=== PATIENT | male | born 1960 | race Caucasian/White ===

== ENCOUNTER 2022-06-30 08:51 | Day surgery (SDC) | payer OTHER ==
[2022-06-27 10:18] VITALS: BMI 33.0
[2022-06-30] MEDS ORDERED: SUGAMMADEX SODIUM 200 MG/2 ML VIAL ONE (09:38)
[2022-06-30] MEDS ORDERED: Midazolam HCl 2 mg/2 ml Vial ONE (14:03)
[2022-06-30] MEDS ORDERED: PROPOFOL 20 ML ONE (14:03)
[2022-06-30] MEDS ORDERED: Fentanyl 100 MCG/2 ML VIAL ONE (14:03)
[2022-06-30] MEDS ORDERED: Rocuronium Bromide 10 MG/ML (10ML VIAL) ONE (14:13)
[2022-06-30] MEDS ORDERED: Dexamethasone 20 MG/5 ML VIAL ONE (14:13)
[2022-06-30] MEDS ORDERED: EPINEPHrine 1 MG/ML AMP ONE (14:30)
== END 2022-06-30 16:25 | disposition home or self-care (01) ==
LOC: CSHSDC 08:51
PROVIDERS: ATTEND Otolaryngology Plastic Surgery within the Head & Neck
PROC: 0CBM8ZX Excision of Pharynx, Via Natural or Artificial Opening Endoscopic, Diagnostic (ICD-10-PCS; principal; 2022-06-30)
DX: C01 Malignant neoplasm of base of tongue (principal); G47.00 Insomnia, unspecified; I25.10 Atherosclerotic heart disease of native coronary artery without angina pectoris; I10 Essential (primary) hypertension; R59.1 Generalized enlarged lymph nodes; Z88.6 Allergy status to analgesic agent; G47.33 Obstructive sleep apnea (adult) (pediatric); Z79.899 Other long term (current) drug therapy
CPT/HCPCS: 88305; 88331; J0171; J1100; J2250; J2704; J3010